=== PATIENT | female | born 1975 | race Caucasian/White ===

== ENCOUNTER 2016-10-31 18:22 | Emergency (ER) | payer OTHER ==
[~2016-10-31] VITALS: Ht 167.6 cm; Wt 85.5 kg
[~2016-10-31 18:22] MED LIST: ALPR0.5T8 PO; AMOX-364 PO; BUSP15TA3 PO; BUTA1CAP42 PO; HYDR-3740 PO; IBUP-1827 PO; NICO1PAT6 TOPICAL; NORT50CA PO; OMEP20CA11 PO; PRAZ1CAP2 PO; SENN8.6C6 PO; SERT100T9 PO; VENL75CA95 PO
[2016-10-31 18:33] VITALS: BP 158/97; PULSE 83; RESP 15; O2SAT 100
[2016-10-31 21:00] VITALS: BP 158/107; PULSE 81; RESP 20; O2SAT 100
[2016-10-31] MEDS ORDERED: 0.9% Sodium Chloride 1,000 ML IV ONE (21:50)
[2016-10-31] MEDS ORDERED: Dexamethasone Inj 10 MG in 0.9% Sodium Chloride-Pha MIX 50 ML IV ONE (21:50)
--- NOTE | 2016-10-31 21:55 | ED.REPORT ---
HPI-Dental/Mouth Prob Date of Service Oct 31, 2016 ED Provider: Kemar Park MD History of Present Illness: Elvira Lagos is a 41 year old woman with a PMH of GERD, PUD, fibromyalgia, anxiety, and recurrent dental abscesses who presents with left mandibular and facial pain for the past 2 weeks. She was treated back in December for facial cellulitis related to necrotic teeth, and since that time has had recurrent dental issues and has been on repeated rounds of anti-biotics, and is currently on Penicillin and Flagyl for a suspected oral abscess as related to her by her dentist. She states that since her cellulitis on the right side of her face she has been exclusively chewing on her left, and thinks she may have sheared off a crown of her most posterior lower left molar(#17). She describes a throbbing pain in her left jaw that radiates down her neck to her collarbone. She further describes intolerance of hot and cold liquids and solids, and has been waiting until her food is room temperature before eating it. She reports some minor difficultly in swallowing, and denies any feelings of a restricted airway. She has an appointment at the end of December to have the two teeth pulled on the left that are likely precipitating these recurrent infections. Nursing Notes Stated Complaint: JAW AND NECK PAIN Chief Complaint: Dental Nursing Notes Reviewed: Yes Allergies: Coded Allergies: Sulfa (Sulfonamide Antibiotics) (Verified Allergy, Intermediate, Rash, ) Scheduled Amoxicillin/Clav K ER 1000-62.5 mg (Augmentin XR 1000-62.5 mg) 1 Each Tab.er.12h 2 TABLET PO BID Buspirone (Buspirone) 15 Mg Tablet 30 MG PO BID Clindamycin (Clindamycin) 300 Mg Capsule 600 MG PO TID Dexamethasone (Dexamethasone) 4 Mg Tablet 4 MG PO BID Nicotine 21 mg/24 hr Patch (Nicotine 21 mg/24 hr Patch) 1 Each Patch.td24 1 PATCH TOPICAL DAILY Nortriptyline (Nortriptyline) 50 Mg Capsule 50 MG PO HS Omeprazole (Omeprazole) 20 Mg Capsule.dr 40 MG PO HS Sennosides (Senna) 8.6 Mg Capsule 8.6 MG PO DAILY Sertraline HCl (Sertraline) 100 Mg Tablet 100 MG PO QAM Venlafaxine ER (Venlafaxine ER) 75 Mg Cap.er.24h 75 MG PO HS Scheduled PRN Alprazolam (Alprazolam) 0.5 Mg Tablet 0.25 MG PO BID PRN PRN For Anxiety or Agitation Butalbital/Acetamin/Caff/Cod 63-568-25-30 mg (Butalbital/Acetamin/Caff/Cod 50- 300-40-30 mg) 1 Each Capsule 1 CAPSULE PO Q4H PRN PRN migraine Hydrocodone-Acetaminophen 10-325 mg (Hydrocodone-Acetaminophen 10-325 mg) 1 Each Tablet 1-2 TABLET PO q4 PRN PRN For Pain Ibuprofen (Ibuprofen) 600 Mg Tablet 600 MG PO QID PRN PRN For Pain Prazosin (Prazosin) 1 Mg Capsule 2 MG PO HS PRN PRN nightmares Tramadol (Tramadol) 50 Mg Tablet 100 MG PO Q6H PRN PRN For Pain General Time Seen by MD: 21:05 Chief Complaint Mouth pain Hx Obtained From: Patient Onset Occurred: More than a week ago... (2 weeks) Symptom Duration: Waxes and wanes Location: : Buccal mucosa left: Gum mandible left Quality: Throbbing Radiation: : Neck Severity: Current: Moderate Severity: Maximum: Severe Recent Healthcare: Recent doctor visit Similar Sx Previous: Yes Past Medical History Past Medical History Anxiety thoracic outlet syndrome H/o of facial cellulitis Systemic autoimmune disease - Lupus IBS Cervical cancer status post hysterectomy Reports: GERD Reports: Depression Past Surgical History Laparoscopy with lysis of adhesions Reports: Hysterectomy, Tonsillectomy Reports: Tubal ligation Smoking History Current Every Day Smoker Social History Alcohol Use: "Social" Drug Use: Denies drug use Other Social History: Good social support, Local resident Ambulatory Status Independent Review of Systems Ears / Nose / Throat: Reports: Mouth pain, Throat pain, Throat swelling Complete sys rev & neg: except as marked. Physical Exam Physical Exam Notes: Gen: A/O x3 pleasant cooperative woman in moderate acute distress secondary to oral pain Neck: Tender Soft tissue swelling overlying lef SCM with boggy feel, submandibular lymphadenopathy on the left. Full ROM HEENT: Asymetrical oropharynyx with swelling of superior later edge of soft palate with minimal instrusion into the airway, posterior inferior left molar(#17) crown completely sheared off with underlying stub exposed, poor dentition on multiple lower teeth, minimal gingival erythema and swelling CV: RRR, no murmurs rubs or gallops Lungs: CTA BL, no wheezing rales or rhonchi Extr: No cyanosis clubbing or edema Neuro: CN 2-12 grossly intact, no focal neurologic deficit. Initial Vital Signs Vital Signs (First) Date Time Temp Pulse Resp B/P Pulse Ox O2 Delivery O2 Flow Rate FiO2 10/31/16 18:33 36.5 83 15 158/97 100 Room Air Initial VS: Reviewed Interpretation & Diagnostics Lab Results Interpretation Result Diagram: 10/31/16215510/31/162155 Test 10/31/16 21:56 11/01/16 01:00 White Blood Count 8.4th/mm3 (3.8-10.1) Red Blood Count 4.41mil/mm3 (3.90-5.20) Hemoglobin 13.4g/dL (12.0-15.6) Hematocrit 40.3% (35.0-46.0) Mean Corpuscular Volume 91.4fL (81-100) Mean Corpuscular Hemoglobin 30.4pg (27.0-35.0) Mean Corpuscular Hemoglobin Concent 33.3% (32.0-37.0) Red Cell Distribution Width 12.9% (12.3-15.4) Platelet Count 359bil/L (150-400) Neutrophils (%) (Auto) 60.5% (40-74) Lymphocytes (%) (Auto) 31.6% (14-46) Monocytes (%) (Auto) 5.5% (4-12) Eosinophils (%) (Auto) 1.7% (0-5) Basophils (%) (Auto) 0.6% (0-3) Sodium Level 140mEq/L (134-144) Potassium Level 3.7mEq/L (3.5-5.2) Chloride Level 101mEq/L (97-108) Carbon Dioxide Level 25mmol/L (18-29) Blood Urea Nitrogen 8mg/dL (6-24) Creatinine 0.70mg/dL (0.57-1.00) Estimat Glomerular Filtration Rate 131mL/min (>59) Glucose Level 99mg/dL (60-99) Calcium Level 9.1mg/dL (8.5-10.1) Total Bilirubin 0.4mg/dL (0.0-1.2) Aspartate Amino Transf (AST/SGOT) 28U/L (0-50) Alanine Aminotransferase (ALT/SGPT) 26U/L (0-32) Alkaline Phosphatase 71U/L (25-150) Total Protein 7.6g/dL (6.4-8.4) Albumin 4.8g/dL (3.4-5.0) Hold Fishman Top Tube Received (Received) Hold Urine Received (Received) Re-Eval/Medical Decision Med Decision/Clinical Course Patient with extensive mild soft tissue swelling with asymmetry of oropharynyx which was concerning for oral abscess which prompted a soft tissue CT of the Neck. Subsequent evaluation revealed a normal CBC, and no evidence of abscess on CT with the caveat that some of the relevant anatomy was obscured by metal fillings. The patient responded well to Decadron and Toradol and was sent home with instructions to expedite her dental appointment if at all possible. Counseled Regarding: Diagnosis, Lab results, Need for follow-up, When/why to return to ED Discharge & Departure Shift Change Sign-Out Response to Therapy: Improved Primary Impression: Dental infection Additional Impression: Dental abscess Disposition: Home Discharge Condition All VS Reviewed: Yes Condition: Stable Patient Instructions: Dental Abscess (ED) Additional Instructions: It does not appear that you have an abscess that we can detect at this time. The pain you are experiencing is likely due to the lost crown you have exposing the underlying nerve and causing pain. If at all possible you should try to work you way in to your dentist for further evaluation of your afflicted tooth, as dental extraction is likely the definitive cure for your ongoing discomfort. If you get fevers or chills, have increasing difficulty swallowing, have any difficulty breathing, or begin to experience facial swelling similar to your previous cellulitis please return to the ED for further evaluation. Referrals: Abida Vaz MD (PCP) Attending Statement As attending of record for this patient, I conducted an independent history and physical examination, and I concur with the resident documentation as above, and as amended. copies to: Abida Vaz MD, David E DO Oct 31, 2016 21:55 Kemar Park MD Nov 01, 2016 06:48
[2016-10-31 22:14] LABS: BASOPHILS % (AUTO) 0.6 % (0-3); EOSINOPHILS % (AUTO) 1.7 % (0-5); MONOCYTES % (AUTO) 5.5 % (4-12); Mean Corpuscular Hemoglobin 30.4 pg (27.0-35.0); Mean Corpuscular Volume 91.4 fL (81-100); NEUTROPHILS % (AUTO) 60.5 % (40-74); Platelet Count 359 bil/L (150-400)
[2016-11-01 00:10] VITALS: BP 140/90; PULSE 80; RESP 18; O2SAT 99
[2016-11-01] MEDS ORDERED: Sodium Chloride LOK Flush 10 mL Syringe IVFLUSH SCH (00:30)
[2016-11-01] MEDS ORDERED: TRAM50TA2 PO (02:13)
[2016-11-01] MEDS ORDERED: DXM4T PO (02:13)
[2016-11-01] MEDS ORDERED: CLIN-78 PO (02:13)
[2016-11-01 02:38] VITALS: BP 142/90; PULSE 82; RESP 19; O2SAT 100
--- NOTE | 2016-11-01 11:23 | DRSVH ---
PROCEDURE: CT NECK SOFT TISSUES WITH CONTRAST ([id number]) INDICATIONS: possible gabbi-oral abscess LL mandible TECHNIQUE: After the administration of intravenous contrast, 3.0 mm axial sections acquired from the sella to th e aortic arch. Additional oblique axial 3.0 mm sections acquired through the pharynx. 3 mm thick co dixie reformats were generated. For radiation dose reduction, the following was used: automated exp osure control. COMPARISON: [facility], CT, CT NECK SOFT TISSUE W CON, 01/01/2016, 14:25. FINDINGS: Image quality: Excellent. Lymph nodes: No enlarged lymph nodes seen throughout the neck. Vessels: Visualized vasculature appears patent. Neck spaces: The oropharynx, nasopharynx, and pharynx demonstrate no mucosal lesions. The vocal cor ds, false vocal cords, pyriform sinuses, epiglottis, vallecula, and tongue base all appear normal. E xtramucosal spaces appear unremarkable. Glands: The parotid and submandibular glands appear normal. Thyroid gland is unremarkable. Miscellaneous: Visualized brain and orbits appear normal. Lung demonstrate punctate nodular right u pper lobe on series 2 image 85, measuring approximately 2 mm. Is unchanged compared to 01/01/16. Super ficial soft tissues appear normal. Bones: No suspicious bony lesions. Visualized sinuses demonstrates a small focal in the left maxill claritza sinus. IMPRESSION: 1. No visualized abscess. It is noted that there is prominent artifact from dental hardware obscuring areas of fine detail evaluation. 2. Stable 2 mm nodule within the right upper lobe compared to 01/01/16. Recommend interval followup as below. Fleischner Society criteria for lung nodule followup. Nodule size (mm)Low-risk patientHigh-risk patient<=4No follow-up needed.Follow-up at 12 months; if no change, no further follow-up.>7-8Phaqjb-sn CT at 12 months; if no change, no further follow-up neede d.Initial follow-up CT at 6-12 months, then 18-24 months if no change.>6-8Initial follow-up CT at 6- 12 months, then 18-24 months if no change.Initial follow-up CT at 3-6 months, then 9-12 months and 24 months if no change.>8Follow-up CT at 3,9 and 24 months or PET and/or biopsySame as for low-risk patientsNon-solid (ground-glass) or partly solid nodules may require longer follow-up to exclude indolent adenocarcinoma. Dictated by: Corina Galarza M.D. on 11/01/2016 at 11:16 Approved by: Corina Galarza M.D. on 11/01/2016 at 11:22
== END 2016-11-01 02:39 | disposition home or self-care (01) ==
LOC: SED 18:22
DX: K04.7 Periapical abscess without sinus (principal); K21.9 Gastro-esophageal reflux disease without esophagitis; M32.9 Systemic lupus erythematosus, unspecified; F17.200 Nicotine dependence, unspecified, uncomplicated; Z88.2 Allergy status to sulfonamides
CPT/HCPCS: 36415; 70491; 80053; 85025; 96365; 96375; 96376; 99285; J1100; J7030; Q9967

== ENCOUNTER 2016-11-12 08:35 | Emergency (ER) | payer OTHER ==
[~2016-11-12] VITALS: Ht 167.6 cm; Wt 80.9 kg
[~2016-11-12 08:35] MED LIST changes: +CLIN-78 PO; +DXM4T PO; +TRAM50TA2 PO
[2016-11-12 08:39] VITALS: BP 134/95; PULSE 101; RESP 18; O2SAT 100
--- NOTE | 2016-11-12 09:08 | ED.REPORT ---
HPI-Abd Pain F 40 and Over Date of Service Nov 12, 2016 ED Provider: Nicolás Tello DO Pt is a 41 y/o female w/ a hx of diverticulosis, IBS, GERD, presenting to the ED c/o LUQ abdominal pain onset 2 days ago. She describes her pain as sharp, pleuritic, gas/indigestion which is exacerbated by movement. She c/o associated nausea, chills. Pt denies constipation, diarrhea, vomiting, fever. She has been on Clindamycin for a dental abscess as well as steroids for facial cellulitis and costochondritis. Her PCP is on maternal leave. Abdominal surgeries: hysterectomy Nursing Notes Stated Complaint: LEFT SIDE PAIN 2 DAYS Chief Complaint: Female Abdominal Pain Nursing Notes Reviewed: Yes Allergies: Coded Allergies: Sulfa (Sulfonamide Antibiotics) (Verified Allergy, Intermediate, Rash, ) Scheduled Amoxicillin/Clav K ER 1000-62.5 mg (Augmentin XR 1000-62.5 mg) 1 Each Tab.er.12h 2 TABLET PO BID Buspirone (Buspirone) 15 Mg Tablet 30 MG PO BID Ciprofloxacin (Cipro) 500 Mg Tablet 500 MG PO BID Clindamycin (Clindamycin) 300 Mg Capsule 600 MG PO TID Dexamethasone (Dexamethasone) 4 Mg Tablet 4 MG PO BID Metronidazole (Flagyl) 500 Mg Tablet 500 MG PO Q8H Nicotine 21 mg/24 hr Patch (Nicotine 21 mg/24 hr Patch) 1 Each Patch.td24 1 PATCH TOPICAL DAILY Nortriptyline (Nortriptyline) 50 Mg Capsule 50 MG PO HS Omeprazole (Omeprazole) 20 Mg Capsule.dr 40 MG PO HS Sennosides (Senna) 8.6 Mg Capsule 8.6 MG PO DAILY Sertraline HCl (Sertraline) 100 Mg Tablet 100 MG PO QAM Venlafaxine ER (Venlafaxine ER) 75 Mg Cap.er.24h 75 MG PO HS Scheduled PRN Alprazolam (Alprazolam) 0.5 Mg Tablet 0.25 MG PO BID PRN PRN For Anxiety or Agitation Butalbital/Acetamin/Caff/Cod 44-703-60-30 mg (Butalbital/Acetamin/Caff/Cod 50- 300-40-30 mg) 1 Each Capsule 1 CAPSULE PO Q4H PRN PRN migraine Hydrocodone-Acetaminophen 10-325 mg (Hydrocodone-Acetaminophen 10-325 mg) 1 Each Tablet 1-2 TABLET PO q4 PRN PRN For Pain Hydrocodone-Acetaminophen 5-325 mg (Hydrocodone-Acetaminophen 5-325 mg) 1 Each Tablet 1-2 TABLET PO Q4H PRN PRN For Pain Ibuprofen (Ibuprofen) 600 Mg Tablet 600 MG PO QID PRN PRN For Pain Ibuprofen (Ibuprofen) 800 Mg Tablet 800 MG PO TID PRN PRN For Pain Prazosin (Prazosin) 1 Mg Capsule 2 MG PO HS PRN PRN nightmares Tramadol (Tramadol) 50 Mg Tablet 100 MG PO Q6H PRN PRN For Pain General Time Seen by MD: 09:02 Chief Complaint Abdominal pain Hx Obtained From: Patient Arrived By: Walk-in Sudden in Onset?: Yes Onset Occurred: 2 days ago Symptom Duration: Since onset Progression since Onset: Intermittent Location: : LUQ Quality: Painful, Sharp Radiation: : Does not radiate Severity: Current: Moderate Severity: Maximum: Moderate Past Medical History Past Medical History Diverticulosis Anxiety thoracic outlet syndrome H/o of facial cellulitis Systemic autoimmune disease - Lupus IBS GERD Cervical cancer status post hysterectomy PTSD Depression Anxiety Past Surgical History Laparoscopy with lysis of adhesions Reports: Hysterectomy, Tonsillectomy Reports: Tubal ligation Smoking History Current Every Day Smoker Social History Alcohol Use: "Social" Drug Use: Denies drug use Other Social History: Good social support, Local resident Ambulatory Status Independent Review of Systems Constitutional: Reports: Chills, Denies: Fever Respiratory: Reports: Pleuritic pain, Denies: Non-productive cough, Shortness of breath Cardiovascular: Denies: Chest pain, Dyspnea on exertion GI: Reports: Abdominal pain, Nausea, Denies: Constipation, Diarrhea, Vomiting Complete sys rev & neg: except as marked. Physical Exam Vital Signs Vital Signs (First) Date Time Temp Pulse Resp B/P Pulse Ox O2 Delivery O2 Flow Rate FiO2 11/12/16 08:39 36 101 18 134/95 100 Room Air Initial VS: Reviewed, Vital signs abnormal Neck: Supple, Full range of motion Extremities: Vascular intact, Neuro intact, No swelling, No tenderness Neurologic: Alert, Oriented, Nonfocal Psychiatric: Mood/affect normal, Behavior normal, Normal thought content General/Constitutional: Awake, Alert, No acute distress, Well appearing, Cooperative, Not toxic appearing Respiratory / Chest: Atraumatic, Breath sounds NL, Breath sounds = bilat, No respiratory distress, No rales, No rhonchi, No wheezing, No retractions, No stridor, No chest tenderness, No chest wall deformity, No crepitus Cardiovascular: Heart rate NL, Regular rhythm, Heart sounds NL, No gallop, No murmurs, No rubs, Cap refill not delayed, Peripheral circulation NL Abdomen: Atraumatic, Soft, No guarding, No rebound, BS normoactive, No distention With palpation of LLQ feels pain in the LUQ Mild epigastric tenderness Mild left-sided periumbilical tenderness Back: Full range of motion, Painless range of motion, No CVA tenderness Head / Eyes: Atraumatic, Normocephalic, PERRL No sinus tenderness ENT: Atraumatic, Airway patent, Mucous membranes moist, Pharynx NL, Tympanic membs NL Interpretation & Diagnostics Lab Results Interpretation Result Diagram: 11/12/16 0900 11/12/16 0900 Test 11/12/16 09:00 11/12/16 10:01 11/12/16 10:40 White Blood Count 15.0th/mm3 (3.8-10.1) Red Blood Count 4.29mil/mm3 (3.90-5.20) Hemoglobin 13.0g/dL (12.0-15.6) Hematocrit 39.4% (35.0-46.0) Mean Corpuscular Volume 91.8fL (81-100) Mean Corpuscular Hemoglobin 30.3pg (27.0-35.0) Mean Corpuscular Hemoglobin Concent 33.0% (32.0-37.0) Red Cell Distribution Width 13.5% (12.3-15.4) Platelet Count 368bil/L (150-400) Neutrophils (%) (Auto) 77.0% (40-74) Lymphocytes (%) (Auto) 13.1% (14-46) Monocytes (%) (Auto) 8.1% (4-12) Eosinophils (%) (Auto) 1.3% (0-5) Basophils (%) (Auto) 0.4% (0-3) Sodium Level 135mEq/L (134-144) Potassium Level 3.7mEq/L (3.5-5.2) Chloride Level 97mEq/L (97-108) Carbon Dioxide Level 25mmol/L (18-29) Blood Urea Nitrogen 12mg/dL (6-24) Creatinine 0.69mg/dL (0.57-1.00) Estimat Glomerular Filtration Rate 133mL/min (>59) Glucose Level 99mg/dL (60-99) Calcium Level 9.6mg/dL (8.5-10.1) Magnesium Level 2.1mg/dL (1.6-2.6) Total Bilirubin 0.5mg/dL (0.0-1.2) Aspartate Amino Transf (AST/SGOT) 62U/L (0-50) Alanine Aminotransferase (ALT/SGPT) 112U/L (0-32) Alkaline Phosphatase 95U/L (25-150) Total Protein 7.4g/dL (6.4-8.4) Albumin 4.1g/dL (3.4-5.0) Lipase 14U/L (13-60) Lactic Acid Level 0.7mmol/L (0.4-2.0) Urine Color Straw (YELLOW) Urine Appearance Clear (CLEAR,HAZY) Urine pH 7.0 (5.0-8.0) Urine Specific [place] 1.006 (1.003-1.035) Urine Protein Negativemg/dL (NEG,TRACE) Urine Glucose (UA) Negativemg/dL (NEGATIVE) Urine Ketones Negativemg/dL (NEGATIVE) Urine Occult Blood Negative (NEGATIVE) Urine Nitrite Negative (NEGATIVE) Urine Bilirubin Negative (NEGATIVE) Urine Urobilinogen Normalmg/dL (NORMAL) Urine Leukocyte Esterase Negative (NEGATIVE) Urine RBC 0-2/hpf (0-2) Urine WBC 0-5/hpf (0-5) Urine Epithelial Cells Moderate/hpf (NONE-MOD) Urine Crystals None seen (NONE SEEN) Urine Bacteria Few/hpf (NONE-FEW) Urine Hyaline Casts None/lpf (NONE) Urine Granular Casts None seen (NONE SEEN) Urine Waxy Casts None seen (NONE SEEN) Urine Red Blood Cell Casts None seen (NONE SEEN) Urine White Blood Cell Casts None seen (NONE SEEN) Urine Mucus None seen (None Seen) Urine Trichomonas None seen (NONE SEEN) Urine Yeast None (NONE SEEN) Urinalysis Comment None Urine Culture Reflexed Not indicated X-Ray Abdominal Interpretation IMPRESSION: 1. No acute intra-abdominal radiographic abnormality. Dictated by: Jordin Cornelius M.D. on 11/12/2016 at 10:04 Approved by: Jordin Cornelius M.D. on 11/12/2016 at 10:06 Study: 4 view Interpretation / Wet Read by: Interpret - Radiologist CT Abd / Pelvis Interpretation IMPRESSION: 1. Acute diverticulitis at the junction of the descending and sigmoid colon without evidence of diverticular abscess or macroscopic free air. 2. Indistinct areas of slight hyperattenuation in the liver appear similar to the prior study. The findings are nonspecific and may reflect flash filling hemangiomas. If clinically indicated, a liver protocol CT or MRI may be performed for further evaluation. Dictated by: Jordin Cornelius M.D. on 11/12/2016 at 12:45 Approved by: Jordin Cornelius M.D. on 11/12/2016 at 12:51 Study type: Abdominal CT IV contrast, Abdom CT oral contrast Interpretation / Wet Read by: Interpret - Radiologist Re-Eval/Medical Decision Med Decision/Clinical Course 41-year-old with a history of diverticulosis (no diverticulitis) presents with left lower quadrant abdominal pain and mild tachycardia. Found to have leukocytosis and so CT was ordered which demonstrates acute diverticulitis without abscess. She was also incidentally found to have several hepatic hemangiomas which were redemonstrated from previous study. Patient clinically looked well enough to be discharged and after receiving fluids her pulse decreased and she felt better and she was afebrile. I discussed with her the reasons to return to the ER including high fevers, increasing abdominal pain, inability to pass stool, or dizziness. Re-Evaluation/Progress #1: Time of Eval: 10:07 Re-Evaluation/Progress Note: Pt rechecked. Discussed elevated WBC. She agrees with plan for CT. Re-Evaluation/Progress #2: Time of Eval: 13:31 Re-Evaluation/Progress Note: Pt rechecked. Informed pt of plan for treatment. Pt understands and agrees with plan for treatment. F/U and RTER warnings given. All questions addressed. Counseled Regarding: Diagnosis, Lab results, Need for follow-up, When/why to return to ED Discharge & Departure Primary Impression: Acute diverticulitis Additional Impressions: Leukocytosis Leukocytosis type: unspecified Qualified Code: D72.829 - Elevated white blood cell count, unspecified Sepsis Sepsis type: sepsis due to unspecified organism Qualified Code: A41.9 - Sepsis, unspecified organism Disposition: Home Discharge Condition All VS Reviewed: Yes Condition: Stable Patient Instructions: Diverticulitis (ED) Additional Instructions: Your CT scan showed signs of diverticulitis, an infection involving the intestinal pouches of diverticulosis. Take the full course of Cipro and Flagyl as prescribed. Take Ibuprofen as directed for aching pain and Hydrocodone every 4 hours as needed for severe breakthrough pain. Hydrocodone causes drowsiness and constipation. Do not drive after taking Hydrocodone. If you become constipated take Miralax. Return to the emergency department for unrelenting high fever, severe pain, persistent vomiting, or for other concerning symptoms. Follow-up with your primary care doctor early next week for a recheck. Call to schedule an appointment, tell them you were seen in the emergency department for diverticulitis and that I requested close follow-up. Referrals: Abida Vaz MD (PCP) Scribe Attestation Portions of this note were transcribed by Raphael Corbett. I, Dr. Tello personally performed the history, physical exam and medical decision-making; I reviewed and confirmed the accuracy of the information in the transcribed note. Signed by Lisa Engladn, 11/12/16909 copies to: Abida Vaz MD, Gary R DO Nov 12, 2016 09:08 RAPHAEL CORBETT Nov 12, 2016 09:15
[2016-11-12] MEDS ORDERED: 0.9% Sodium Chloride 1,000 ML IV ONE (09:18)
[2016-11-12] MEDS ORDERED: Ondansetron 2 mg/mL 2 mL Inj IVPUSH ONE (09:20)
[2016-11-12] MEDS ORDERED: LidocaineVisc 2%:Antacid 1:1 10 mL Syringe PO ONE (09:20)
[2016-11-12] MEDS ORDERED: Ketorolac 15 mg/mL Inj IVPUSH ONE (09:20)
[2016-11-12] MEDS ORDERED: Pantoprazole 4 mg/mL 10 mL Inj IVPUSH ONE (09:20)
[2016-11-12 09:49] LABS: BASOPHILS % (AUTO) 0.4 % (0-3); EOSINOPHILS % (AUTO) 1.3 % (0-5); MONOCYTES % (AUTO) 8.1 % (4-12); Mean Corpuscular Hemoglobin 30.3 pg (27.0-35.0); Mean Corpuscular Volume 91.8 fL (81-100); Platelet Count 368 bil/L (150-400)
--- NOTE | 2016-11-12 10:08 | DRSVH ---
PROCEDURE: X-RAY ACUTE ABDOMINAL SERIES ([id number]) INDICATIONS: abdominal pain TECHNIQUE: One view chest and two views of the abdomen were acquired. COMPARISON: [facility], CR, XR CHEST 1VW (PORTABLE), 08/03/2016, 18:38. FINDINGS: Surgical changes and devices: None. Chest: Lungs are clear. Heart size is normal. No pleural effusions. No pneumoperitoneum. Abdomen: Bowel gas pattern is normal. No suspicious calcifications. Visualized solid organ contour s appear normal. Bones: No suspicious bony lesions. IMPRESSION: 1. No acute intra-abdominal radiographic abnormality. Dictated by: Jordin Cornelius M.D. on 11/12/2016 at 10:04 Approved by: Jordin Cornelius M.D. on 11/12/2016 at 10:06
[2016-11-12] MEDS ORDERED: Iohexol 300 mg/mL 30 mL Inj PO ONE (10:10)
[2016-11-12 10:14] LABS: Magnesium 2.1 mg/dL (1.6-2.6)
[2016-11-12 11:13] LABS: APPEARANCE,URINE CLEAR (CLEAR,HAZY); COLOR,URINE STRAW (YELLOW); OCCULT BLOOD,URINE NEGATIVE (NEGATIVE); UROBILINOGEN,URINE NORMAL (NORMAL)
--- NOTE | 2016-11-12 12:57 | DRSVH ---
PROCEDURE: CT ABDOMEN AND PELVIS WITH CONTRAST ([id number]) INDICATIONS: LLQ abdominal pain, +leukocytosis, chills TECHNIQUE: After the administration of oral and intravenous contrast, 5 mm thick sections acquired from the diap hragms to the symphysis. 5 mm thick coronal and sagittal reformats were performed. For radiation do se reduction, the following was used: automated exposure control, adjustment of mA and/or kV accordi ng to patient size. COMPARISON: [facility], CT, ABD/PELVIS W/CON (PNL), 08/14/2010, 0:28. [facility] [place], CT, CT ABD PELVIS W CON, 07/24/2016, 22:53. FINDINGS: Image quality: Excellent. ABDOMEN: Lung bases: There is a small left lower lobe pulmonary nodule measuring up to 6 mm which is stable c ompared to prior studies. Heart size is normal. Solid organs: There is hypoattenuation of the liver consistent with fatty infiltration. There is a s mall indistinct region of slight relative hyperattenuation again noted in the left hepatic lobe as we ll as a small indistinct hyperattenuating focus in the right hepatic lobe. These have decreased in p rominence compared to the 08/14 such stones study and appears similar compared to the 07/24/16 study. The spleen is normal in size. Gallbladder appears within normal limits. Biliary system is non-dilat ed. Pancreas enhances normally. No adrenal nodules. Kidneys are normal in size and enhancement, wi thout hydronephrosis. Peritoneum and bowel: Stomach and small bowel loops are normal in caliber and wall thickness. There is colonic diverticulosis with associated inflammatory fat stranding in no distal descending colon a nd mild segmental wall thickening extending into the sigmoid colon. There is a small amount of assoc iated free fluid in the left paracolic gutter. No diverticular abscess or macroscopic free air. Nodes and vessels: No retroperitoneal or mesenteric adenopathy. Aorta and inferior vena cava are no rmal in caliber. Miscellaneous: No ventral hernias. PELVIS: Genitourinary: Bladder wall thickness is normal. Miscellaneous: No inguinal hernias or adenopathy. Bones: No suspicious bony lesions. No vertebral body compression fractures. IMPRESSION: 1. Acute diverticulitis at the junction of the descending and sigmoid colon without evidence of dive rticular abscess or macroscopic free air. 2. Indistinct areas of slight hyperattenuation in the liver appear similar to the prior study. The findings are nonspecific and may reflect flash filling hemangiomas. If clinically indicated, a liver protocol CT or MRI may be performed for further evaluation. Dictated by: Jordin Cornelius M.D. on 11/12/2016 at 12:45 Approved by: Jordin Cornelius M.D. on 11/12/2016 at 12:51
[2016-11-12] MEDS ORDERED: CIPR-231 PO (13:34)
[2016-11-12] MEDS ORDERED: METR500T PO (13:34)
[2016-11-12] MEDS ORDERED: HYDR-4003 PO (13:35)
[2016-11-12] MEDS ORDERED: IBUP800T28 PO (13:35)
[2016-11-12 13:53] VITALS: BP 130/92; PULSE 98; RESP 15; O2SAT 100
== END 2016-11-12 13:54 | disposition home or self-care (01) ==
LOC: SED 08:35
DX: K57.92 Diverticulitis of intestine, part unspecified, without perforation or abscess without bleeding (principal); D72.829 Elevated white blood cell count, unspecified; A41.9 Sepsis, unspecified organism; K21.9 Gastro-esophageal reflux disease without esophagitis; F17.200 Nicotine dependence, unspecified, uncomplicated; Z90.710 Acquired absence of both cervix and uterus; Z87.39 Personal history of other diseases of the musculoskeletal system and connective tissue; Z87.19 Personal history of other diseases of the digestive system; Z85.41 Personal history of malignant neoplasm of cervix uteri; Z88.2 Allergy status to sulfonamides
CPT/HCPCS: 36415; 74022; 74177; 80053; 81000; 83605; 83690; 83735; 85025; 96361; 96374; 96375; 99285; J1885; J2405; J7030; Q9967

== ENCOUNTER 2017-03-17 11:44 | Emergency (ER) | payer OTHER ==
[~2017-03-17] VITALS: Ht 167.6 cm; Wt 89.5 kg
[~2017-03-17 11:44] MED LIST changes: +CIPR-231 PO; +HYDR-4003 PO; +IBUP800T28 PO; +METR500T PO
[2017-03-17 11:48] VITALS: BP 151/94; PULSE 87; RESP 16; O2SAT 100
--- NOTE | 2017-03-17 12:00 | ED.REPORT ---
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 pain is continously. primary care is Dannielle NICOLE at [facility] in [place]. 02/27. no hx of asthma Nursing Notes Stated Complaint: CHEST PAIN Chief Complaint: Chest Pain-Non Cardiac Nature Nursing Notes Reviewed: Yes Allergies: Coded Allergies: Sulfa (Sulfonamide Antibiotics) (Verified Allergy, Intermediate, Rash, ) Scheduled Amoxicillin/Clav K ER 1000-62.5 mg (Augmentin XR 1000-62.5 mg) 1 Each Tab.er.12h 2 TABLET PO BID Buspirone (Buspirone) 15 Mg Tablet 30 MG PO BID Ciprofloxacin (Cipro) 500 Mg Tablet 500 MG PO BID Clindamycin (Clindamycin) 300 Mg Capsule 600 MG PO TID Dexamethasone (Dexamethasone) 4 Mg Tablet 4 MG PO BID Metronidazole (Flagyl) 500 Mg Tablet 500 MG PO Q8H Nicotine 21 mg/24 hr Patch (Nicotine 21 mg/24 hr Patch) 1 Each Patch.td24 1 PATCH TOPICAL DAILY Nortriptyline (Nortriptyline) 50 Mg Capsule 50 MG PO HS Omeprazole (Omeprazole) 20 Mg Capsule.dr 40 MG PO HS Sennosides (Senna) 8.6 Mg Capsule 8.6 MG PO DAILY Sertraline HCl (Sertraline) 100 Mg Tablet 100 MG PO QAM Venlafaxine ER (Venlafaxine ER) 75 Mg Cap.er.24h 75 MG PO HS Scheduled PRN Alprazolam (Alprazolam) 0.5 Mg Tablet 0.25 MG PO BID PRN PRN For Anxiety or Agitation Butalbital/Acetamin/Caff/Cod 58-338-58-30 mg (Butalbital/Acetamin/Caff/Cod 50- 300-40-30 mg) 1 Each Capsule 1 CAPSULE PO Q4H PRN PRN migraine Hydrocodone-Acetaminophen 10-325 mg (Hydrocodone-Acetaminophen 10-325 mg) 1 Each Tablet 1-2 TABLET PO q4 PRN PRN For Pain Hydrocodone-Acetaminophen 5-325 mg (Hydrocodone-Acetaminophen 5-325 mg) 1 Each Tablet 1-2 TABLET PO Q4H PRN PRN For Pain Ibuprofen (Ibuprofen) 600 Mg Tablet 600 MG PO QID PRN PRN For Pain Ibuprofen (Ibuprofen) 800 Mg Tablet 800 MG PO TID PRN PRN For Pain Prazosin (Prazosin) 1 Mg Capsule 2 MG PO HS PRN PRN nightmares Tramadol (Tramadol) 50 Mg Tablet 100 MG PO Q6H PRN PRN For Pain General Time Seen by MD: 11:59 Chief Complaint Chest pain, Back pain, Chest pressure, Nausea, Shortness of breath, Vomiting Hx Obtained From: Patient Sudden in Onset?: No Location: : Chest left: Chest right Past Medical History Past Medical History Diverticulosis Anxiety thoracic outlet syndrome H/o of facial cellulitis Systemic autoimmune disease - Lupus IBS GERD Cervical cancer status post hysterectomy PTSD Depression Anxiety Denies: Asthma Past Surgical History Laparoscopy with lysis of adhesions Reports: Hysterectomy, Tonsillectomy Reports: Tubal ligation Smoking History Former Smoker (quit 15 months ago 03/17/2017) Social History Alcohol Use: "Social" Drug Use: Denies drug use Other Social History: Good social support, Local resident 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, 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 Ambulatory Status Independent Review of Systems Basic Review of Systems Eyes: Vision NL, No discharge Hematologic: No bleeding, No bruising Endocrine: No cold intolerance, No heat intolerance, No weight gain, No weight loss Physical Exam Initial Vital Signs Vital Signs (First) Date Time Temp Pulse Resp B/P Pulse Ox O2 Delivery O2 Flow Rate FiO2 03/17/17 11:48 36.8 87 16 151/94 100 Room Air Initial VS: Reviewed, Vital signs normal Head / Eyes: Atraumatic, Normocephalic, PERRL ENT: Mucous membranes moist, Conjunctiva normal, No scleral icterus Neck: Supple, Non-tender, Full range of motion Back: No CVA tenderness Lymphatic: No lymphadenopathy Extremities: Vascular intact, Neuro intact, No swelling, No tenderness Skin: Warm, Dry, No cyanosis Neurologic: Alert, Oriented, Nonfocal Psychiatric: Mood/affect normal, Behavior normal, Normal thought content General/Constitutional: Awake, Alert, Well appearing, Well developed, Well hydrated Distress / Hydration: Positive: Distress mild Respiratory / Chest: Atraumatic, Breath sounds NL, Breath sounds = bilat, No respiratory distress Cardiovascular: Heart rate NL, Regular rhythm, Heart sounds NL, No gallop, No murmurs, No rubs, Cap refill not delayed able to reproduce the pain with movement and palpation Abdomen: Atraumatic, Soft, Non-tender Neck: Atraumatic, Supple, No meningismus, Full range of motion Interpretation & Diagnostics Lab Results Interpretation Result Diagram: 03/17/17 1225 03/17/17 1225 Test 03/17/17 12:25 White Blood Count 6.7th/mm3 (3.8-10.1) Red Blood Count 4.26mil/mm3 (3.90-5.20) Hemoglobin 13.0g/dL (12.0-15.6) Hematocrit 39.4% (35.0-46.0) Mean Corpuscular Volume 92.5fL (81-100) Mean Corpuscular Hemoglobin 30.5pg (27.0-35.0) Mean Corpuscular Hemoglobin Concent 33.0% (32.0-37.0) Red Cell Distribution Width 13.0% (12.3-15.4) Platelet Count 323bil/L (150-400) Neutrophils (%) (Auto) 54.9% (40-74) Lymphocytes (%) (Auto) 34.8% (14-46) Monocytes (%) (Auto) 7.2% (4-12) Eosinophils (%) (Auto) 2.4% (0-5) Basophils (%) (Auto) 0.6% (0-3) D-Dimer < 0.50mg/L FEU (<0.50) Sodium Level 138mEq/L (134-144) Potassium Level 4.1mEq/L (3.5-5.2) Chloride Level 103mEq/L (97-108) Carbon Dioxide Level 21mmol/L (18-29) Blood Urea Nitrogen 8mg/dL (6-24) Creatinine 0.70mg/dL (0.57-1.00) Estimat Glomerular Filtration Rate 131mL/min (>59) Glucose Level 101mg/dL (60-99) Calcium Level 9.1mg/dL (8.5-10.1) Total Bilirubin 0.2mg/dL (0.0-1.2) Aspartate Amino Transf (AST/SGOT) 39U/L (0-50) Alanine Aminotransferase (ALT/SGPT) 35U/L (0-32) Alkaline Phosphatase 84U/L (25-150) Troponin T < 0.010ug/L (0.0-0.011) Total Protein 7.2g/dL (6.4-8.4) Albumin 4.1g/dL (3.4-5.0) Hold Fishman Top Tube Received (Received) Lab Results Interpretation: d-dimer is negative, troponin is negative Re-Eval/Medical Decision Med Decision/Clinical Course 41 year old female presents for evualation of chest pain of 3 days duration. She reports this is very similiar to her episode of costrachondritis about 6 months ago. LAbs are reassuring, EKG is normal, troponin and d-dimer are negative. Pain is reduced with toradol. no sign of PE or SC Discharge & Departure Primary Impression: Chest wall pain Disposition: Home Patient Instructions: Costochondritis (ED) Additional Instructions: The chest x-ray is negative. Your EKG is normal. Your troponin is normal. Your d -dimer is negative, no sign of any pulmonary embolus. You have had a good response to the pain medication. You are being provided a course of ketorolac 4 times a day for 5 days. If you do not see significant improvement at that time, you can start the steroids. Please follow with primary care. Note for work provided. Referrals: Abida Vaz MD (PCP) EDSupervising Provider for APC: Margarito Alaniz DO copies to: Abida Vaz MD, Sue ARNP Mar 17, 2017 12:00
[2017-03-17 12:41] LABS: BASOPHILS % (AUTO) 0.6 % (0-3); EOSINOPHILS % (AUTO) 2.4 % (0-5); MONOCYTES % (AUTO) 7.2 % (4-12); Mean Corpuscular Hemoglobin 30.5 pg (27.0-35.0); Mean Corpuscular Volume 92.5 fL (81-100); NEUTROPHILS % (AUTO) 54.9 % (40-74); Platelet Count 323 bil/L (150-400)
--- NOTE | 2017-03-17 13:17 | DRSVH ---
PROCEDURE: X-RAY CHEST, TWO VIEWS ([id number]) INDICATIONS: chest pain TECHNIQUE: 2 views of the chest were acquired. COMPARISON: [facility], CR, XR CHEST 1VW (PORTABLE), 08/03/2016, 18:38. FINDINGS: Surgical changes and devices: None. Lungs and pleura: No pleural effusions or pneumothorax. Lungs are clear. Mediastinum: Mediastinal contours are normal. Heart size is normal. Bones and chest wall: No suspicious bony abnormalities. Soft tissues appear unremarkable. IMPRESSION: Source of chest pain not found. Dictated by: Kvng Carrizales M.D. on 03/17/2017 at 13:15 Approved by: Kvng Carrizales M.D. on 03/17/2017 at 13:15
[2017-03-17 13:24] LABS: TROPONIN T < 0.010 ug/L (0.0-0.011)
[2017-03-17 14:33] VITALS: BP 137/90; PULSE 90; RESP 16; O2SAT 100
== END 2017-03-17 14:34 | disposition home or self-care (01) ==
LOC: SED 11:44
DX: R07.89 Other chest pain (principal); R06.02 Shortness of breath; R11.2 Nausea with vomiting, unspecified; M54.9 Dorsalgia, unspecified; K21.9 Gastro-esophageal reflux disease without esophagitis; F41.8 Other specified anxiety disorders; Z87.891 Personal history of nicotine dependence; Z88.2 Allergy status to sulfonamides
CPT/HCPCS: 36415; 71020; 80053; 84484; 85025; 85378; 93005; 96372; 99285; J1885